=== PATIENT | female | born 1970 | race Caucasian/White ===

== ENCOUNTER 2016-12-12 22:16 | Emergency (ER) | payer MEDICARE, MEDICAID ==
--- NOTE | 2016-12-14 07:39 | ER ---
ADMIT: 12/12/2016 RM/LOC: ER [facility] MR#: [id number] [address] [id number] JOESPH CALIX [address] [place] [address] Emergency Room Report SEX: F AGE: 46 : 1970 DATE: 12/12/2016 The patient is a 46-year-old female with past medical history of CHF, hypertension who came to the ER with chief complaint of intermittent chest discomfort in anterior chest for the last 3 days and intermittent increase in baseline shortness of breath. The patient denies any radiation of pain or association of the pain with exertion. At the moment, the patient states the pain is gone and shortness of breath is more like the baseline. EKG was negative for ST or T changes or arrhythmias or Q waves. Chest x-ray was negative for any abnormalities. Troponin I was negative. Head and neck noncontributory. Bilateral equal breath sounds with normal S1, S2 without any murmurs. Soft abdomen. No bruit on the neck. No pitting edema on lower extremities or upper extremities with normal peripheral pulses. The patient had mildly elevated D-dimer to 0.55. CT angio of the chest was negative for pulmonary emboli. The patient is stable, symptom-free and states she can follow up with the primary doctor. The patient was discharged to home. David Casiano MD/ daniel JOB #: [id number] CC: David aCsiano MD, Attending Physician Kat Delgado MD, Family Physician
== END 2016-12-13 04:30 | disposition home or self-care (01) ==
LOC: ER 22:16
DX: R07.89 Other chest pain (principal); E78.00 Pure hypercholesterolemia, unspecified; E11.9 Type 2 diabetes mellitus without complications; I10 Essential (primary) hypertension

== ENCOUNTER 2017-05-12 14:37 | Emergency (ER) | payer MEDICARE, MEDICAID ==
--- NOTE | 2017-05-13 14:46 | ER ---
ADMIT: 05/12/2017 RM/LOC: ER [facility] MR#: [id number] [address] HERIBERTO CALIXNA Marie [address] [place] [address] Emergency Room Report SEX: F AGE: 47 : 1970 DATE: 05/12/2017 HISTORY OF PRESENT ILLNESS: The patient is a 47-year-old female, congested, trouble breathing, and cough. She is morbidly obese. She has a productive cough. She says she has had a history of CHF and hypertension. She has had carpal tunnel syndrome and surgery and with tonsillectomy. Her vitals; blood pressure 120/74 with a pulse of 74, respirations 16, temp is 98.8, and O2 sats 96%. She also adds that she has been working at [employer] in the beginning. She was doing well the last 2 days. She has been having exposure to the dust from the corn and even though she wore a mask the first day, the second day half of the day she did, the other half she did not. So now, she presents with symptoms of congestion. She has audible wheezes. PHYSICAL EXAMINATION: GENERAL: She is alert and oriented. CVS: Regular rate and rhythm. SKIN: Good color and turgor. No sinus congestion. No pharyngeal erythema. HEENT: Totally normal. NEUROLOGIC: Oriented x4. Mood and affect are appropriate. DIAGNOSTIC DATA: Chest x-ray, increased vasculature, read by Dr. Fernandes. No indication of pneumonia. CLINICAL IMPRESSION: Reactive airway bronchitis. The patient was given a prescription of albuterol and prednisone, and she improved some while she was in the ER. We gave her breathing treatment of DuoNeb and gave her shot of Decadron. She does have to continue her steroids, and she is advised to do that tomorrow. Work excuse given. She did not go to work today due to her symptoms. Encouraged to follow up with her primary provider within 48 hours that is to monitor her CHF, make sure that things do not get out of control, and she can continue taking the same dose of Lasix 80 mg. The patient verbalized understanding. JOHN Bay / Amauri Fernandes MD / daniel JOB #: [id number] CC: Amauri Fernandes MD, Attending Physician UNKNOWN, Family Physician
== END 2017-05-12 17:00 | disposition home or self-care (01) ==
LOC: ER 14:37
DX: J45.909 Unspecified asthma, uncomplicated (principal); I11.0 Hypertensive heart disease with heart failure; I50.9 Heart failure, unspecified; E66.01 Morbid (severe) obesity due to excess calories; Z90.89 Acquired absence of other organs; Z98.890 Other specified postprocedural states; Z79.899 Other long term (current) drug therapy; Z79.84 Long term (current) use of oral hypoglycemic drugs